=== PATIENT | female | born 1960 | race Caucasian/White ===

== ENCOUNTER 2019-07-18 07:52 | Observation (INO) | payer MEDICARE ==
--- NOTE | 2019-07-18 08:28 | RAD ---
Chest one view HISTORY: Altered mental status. COMPARISON: 01/15/2016. FINDINGS: Patient is rotated rightward. Right cardiac margin obscured by dense infiltrate within the medial segment right middle lobe. Pulmonary vasculature upper limits of normal. No evidence of pneumothorax. monitor and storage bin tender leads overlie the chest. IMPRESSION: Dense right middle lobe infiltrate. Consider pneumonia.
--- NOTE | 2019-07-18 08:50 | CT ---
CT head noncontrast HISTORY: Altered mental status. FINDINGS: There is no evidence of acute intracranial hemorrhage or infarct. Chronic ischemic small ve ssel disease within the periventricular white matter. There is no mass effect or shift of midline structures. Visualized paranasal sinuses remain well aerated. IMPRESSION: No acute intracranial abnormalities are demonstrated.
[2019-07-18 09:13] LABS: #Basophils 0.1 thou/uL (0.0-0.2); #Eosinphils 0.2 thou/uL (0.0-0.7); #Lymphocytes 2.1 thou/uL (1.20-3.40); #Monocytes 0.7 thou/uL (0.11-0.59); #Neutrophils 5.3 thou/uL (1.40-6.50); %Basophils 1.3 % (0.0-1.0); %Eosinophils 1.9 % (0.0-10.0); %Lymphocytes 24.9 % (21.0-51.0); %Monocytes 8.3 % (0.0-10.0); %Neutrophils 63.6 % (42.0-75.0); Hemoglobin 13.1 g/dL (12.0-16.0); Mean Corpuscular HGB CONC 33.8 g/dL (32.0-36.0); Mean Corpuscular Volume 94.8 fL (78.0-98.0); Mean Platelet Volume 6.3 fL (7.4-10.4); Platelet Count 340 thou/uL (130-400); RBC Distribution Width 11.4 % (11.5-14.5); White Blood Cell (WBC) Count 8.3 thou/uL (4.8-10.8)
[2019-07-18 09:27] LABS: ALT (SGPT) 17 U/L (8-55); AST (SGOT) 15 U/L (5-34); Acetaminophen Less than 6.0 mcg/mL (10.0-30.0); Albumin 3.8 g/dL (3.5-5.0); Alcohol Less than 10 mg/dL (Less than 10); Alkaline Phosphatase 102 U/L (40-110); Anion Gap 11 mmol/L (10-20); BUN (Urea Nitrogen) 13 mg/dL (9.8-20.1); Bilirubin, Total 0.2 mg/dL (0.2-1.2); CK (CPK) 47 U/L (29-168); Calc. Creatinine Clearance 0 mL/min (70-130); Calcium 9.1 mg/dL (7.8-10.44); Carbon Dioxide 27 mmol/L (22-29); Chloride 108 mmol/L (98-107); Estimated GFR-MDRD 78; Globulin 2.7 g/dL (2.4-3.5); Glucose 95 mg/dL (70-105); Lipase 36 U/L (8-78); Potassium 4.1 mmol/L (3.5-5.1); Protein, Total 6.5 g/dL (6.0-8.3); Salicylate Less than 8.0 mg/dL (15.0-30.0); Sodium 142 mmol/L (136-145)
[2019-07-18] MEDS ORDERED: Ondansetron ODT 4 MG TAB SL PRN (10:13)
[2019-07-18] MEDS ORDERED: Ondansetron PF 4 MG/2 ML Vial IVP PRN ×2 (10:13→16:05)
[2019-07-18] MEDS ORDERED: Aspirin 300 MG Suppository ONE (10:21)
[2019-07-18] MEDS ORDERED: hydrALAZINE 20 MG/ML VIAL SLOW IVP PRN (16:05)
[2019-07-18] MEDS ORDERED: Benzonatate 100 MG CAP PO PRN (16:05)
[2019-07-18] MEDS ORDERED: Diabetic Tussin 200 MG/10 ML UDCUP PO PRN (16:05)
[2019-07-18] MEDS ORDERED: Acetaminophen 500 MG TAB PO PRN (16:05)
[2019-07-18] MEDS ORDERED: Ondansetron ODT 4 MG TAB PO PRN (16:05)
--- NOTE | 2019-07-18 17:36 | HP ---
PRIMARY CARE PROVIDER: Dr. Palma Juarez. CHIEF COMPLAINT: Altered mental status. HISTORY OF PRESENT ILLNESS: This is a 59-year-old female, who presented initially to [facility] Emergency Department for evaluation of a left finger laceration. During the ER evaluation, the patient became somnolent and unresponsive. The patient was given Narcan per EMS report without improvement in mentation. The patient was apparently transported from her residence in [facility] to the [place] [facility], where evaluation including CT imaging of the brain showed no acute process. Urine drug screen was also performed showing cocaine and opiate metabolites. The patient was also noted on multiple psychotropic medications after review of her medication regimen. Chest imaging was also performed showing evidence of infiltrate of the right middle lobe and the patient received IV fluids in addition to Levaquin 750 mg IV push. The patient also received aspirin 324 mg. The history is obtained after review of electronic medical record as well as discussions with the emergency room attending as the patient is unable to provide a coherent history due to altered mental status. PAST MEDICAL HISTORY: 1. Polypharmacy. 2. Question of chronic pain syndrome. 3. Chronic obstructive pulmonary disease. 4. History of pneumonia. 5. Hyperlipidemia. 6. Cluster headaches. PAST SURGICAL HISTORY: 1. 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 2. Status post hysterectomy. 3. Status post colonoscopy. PAST PSYCHIATRIC HISTORY: 1. Bipolar disorder. 2. Schizophrenia. CURRENT MEDICATIONS: 1. Tylenol No. 4 300 mg/60 mg one tablet p.o. t.i.d. 2. Albuterol sulfate 0.083% nebulized q.4 to q.6 hours p.r.n. 3. Baclofen 20 mg one tablet p.o. b.i.d. 4. Wellbutrin XL 300 mg p.o. daily. 5. Keflex 500 mg p.o. b.i.d. 6. Klonopin 1 mg p.o. t.i.d. p.r.n. 7. Diclofenac 50 mg p.o. b.i.d. 8. Bentyl 10 mg p.o. t.i.d. p.r.n. 9. Estrace 1 mg p.o. daily. 10. Prozac 60 mg p.o. daily. 11. Haldol 5 mg p.o. b.i.d. 12. Keppra 500 mg p.o. b.i.d. 13. Pamelor 75 mg p.o. daily. 14. Omeprazole 20 mg p.o. daily. 15. Seroquel 200 mg half a tablet p.o. at bedtime. 16. Theophylline 450 mg p.o. daily. 17. Trazodone 100 mg p.o. at bedtime. ALLERGIES: NO KNOWN DRUG ALLERGIES. FAMILY HISTORY: Positive for hypertension. SOCIAL HISTORY: The patient resides in [place], [place]. Smokes up to one pack of cigarettes daily. No alcohol or illicit drug use reported initially at [facility] Emergency Room. REVIEW OF SYSTEMS: Unobtainable due to the patient's altered mental status. PHYSICAL EXAMINATION: VITAL SIGNS: On admission, blood pressure 116/96, pulse 58, respiratory rate 16, temperature 97.7 degrees Fahrenheit, and O2 saturation 98% on room air. GENERAL APPEARANCE: This is a 59-year-old female, lethargic, somnolent, minimally responsive to voice or tactile stimulation, in no acute distress. HEENT: Pupils are minimally reactive to light and accommodation. Extraocular muscles are intact. No scleral icterus. No conjunctival injection. Nares patent. OP is clear. Oral mucosa dry. NECK: Supple. No cervical adenopathy. No thyromegaly. No carotid bruits. No JVD appreciated. Cervical spine with full active and passive range of motion. No meningeal signs noted. CHEST: Diminished breath sounds bilaterally in the bases with occasional rhonchi. CARDIOVASCULAR: S1 and S2 without noted murmur, rub, or gallop. ABDOMEN: Rounded, soft, nontender, and nondistended. Bowel sounds are positive in all 4 quadrants. There is no hepatosplenomegaly. No abdominal bruits. No rebound or guarding appreciated. EXTREMITIES: Warm and dry with fair turgor. No clubbing, cyanosis, or asymmetric edema appreciated. Pulses palpable distally at the dorsalis pedis, posterior tibial, and popliteal arteries bilaterally. Capillary refill less than 2 seconds. NEUROLOGIC: Somnolent and lethargic, minimally responsive to tactile and verbal stimuli. Does not follow commands. PERTINENT LABORATORY AND X-RAY FINDINGS: Basic metabolic profile within normal limits. Lactic acid level 1.5. LFTs within normal limits. BNP 10.2. Troponin-I negative x1. TSH 1.87. CBC showed a white blood cell count 8.3, hemoglobin 13, hematocrit 39, platelet count 340 with 64% neutrophils. Urine drug screen positive for cocaine and opiate metabolites. Urinalysis negative. Portable chest x-ray dated 07/18/2019, showed right middle lobe infiltrate. CT of the brain without contrast dated 07/18/2019, showed no acute intracranial process. EKG dated 07/18/2019, by my interpretation shows sinus mechanism with heart rates in the 50s. Normal R-wave progression noted in the precordial leads. Normal axis. T-wave inversion noted in leads V2 and V3. ASSESSMENT AND PLAN: 1. Acute toxic metabolic encephalopathy, suspect multifactorial including polypharmacy with multiple psychotropic medications including illicit substances with cocaine. Continue general supportive management. Intravenous normal saline 100 mL/h. Avoid sedation and psychotropic medications. Consult [employer] Services when clinically stabilized. 2. Right middle lobe bacterial pneumonia, suspected given initial chest imaging results. Continue Levaquin 750 mg IV daily. Blood cultures x2 pending. Oxygen p.r.n. to maintain O2 saturations greater than or equal to 90%. 3. Bipolar disorder/schizophrenia. We will confirm home medication regimen. It appears the patient with extensive polypharmacy likely contributing at presentation. 4. Tobacco abuse. Smoking cessation resources prior to discharge. 5. Prophylaxis. SCDs while in bed. Pepcid 20 mg IV q.12 hours. [employer] consult when medically stable. 6. Code status: Full. Surrogate medical decision maker is the patient's sister, Carine Guillermo. Job ID: [id number]
[2019-07-18] MEDS: Sodium Chloride 0.9% 1,000 ML IV SCH (18:27)
[2019-07-18] MEDS: Famotidine/PF 20 mg/2ml Vial SLOW IVP SCH (23:09)
[2019-07-19] MEDS ORDERED: Acetaminophen 650 MG Suppository PR PRN (00:04)
[2019-07-19] MEDS: Sodium Chloride 0.9% 1,000 ML IV SCH (02:05)
[2019-07-19 05:36] LABS: Band 4 % (5-11); Eosinophils 3 % (0-10); Hemoglobin 12.2 g/dL (12.0-16.0); Lymphocytes 24 % (21-51); MDiff Complete? YES; Mean Corpuscular HGB CONC 32.1 g/dL (32.0-36.0); Mean Corpuscular Volume 96.3 fL (78.0-98.0); Mean Platelet Volume 6.4 fL (7.4-10.4); Monocytes 7 % (0-10); Neutrophil 62 % (42-75); Platelet Count 307 thou/uL (130-400); RBC Distribution Width 11.5 % (11.5-14.5); Red Blood Cell (RBC) Count 3.94 mill/uL (4.20-5.40); White Blood Cell (WBC) Count 7.8 thou/uL (4.8-10.8)
[2019-07-19 05:41] LABS: ALT (SGPT) 14 U/L (8-55); AST (SGOT) 14 U/L (5-34); Albumin 3.4 g/dL (3.5-5.0); Alkaline Phosphatase 88 U/L (40-110); Anion Gap 12 mmol/L (10-20); BUN (Urea Nitrogen) 17 mg/dL (9.8-20.1); Bilirubin, Total 0.4 mg/dL (0.2-1.2); Calc. Creatinine Clearance 93 mL/min (70-130); Calcium 8.3 mg/dL (7.8-10.44); Carbon Dioxide 21 mmol/L (22-29); Chloride 112 mmol/L (98-107); Estimated GFR-MDRD 76; Globulin 2.4 g/dL (2.4-3.5); Glucose 88 mg/dL (70-105); Potassium 3.8 mmol/L (3.5-5.1); Protein, Total 5.8 g/dL (6.0-8.3); Sodium 141 mmol/L (136-145)
[2019-07-19] MEDS: Famotidine/PF 20 mg/2ml Vial SLOW IVP SCH ×2 (09:18→21:30)
[2019-07-19] MEDS ORDERED: PROVENTIL INHALER 6.7 G (200 INHALATIONS) INH PRN (15:54)
--- NOTE | 2019-07-19 15:54 | PDOC.HOSPP ---
- Subjective Encounter Date: 07/19/19 Encounter Time: 15:50 Subjective: f/u for AMS and polypharmacy with cocaine. More alert and interactive. [facility] consulted given multiple psychotropic medications in addition to cocaine. - Objective Vital Signs & Weight: Vital Signs (12 hours) Temp Pulse Resp BP BP Pulse Ox 07/19/19 11:58 98.4 F 62 18 172/99 H 98 07/19/19 11:15 172/99 H 07/19/19 08:08 96 07/19/19 08:00 98.7 F 64 16 140/89 96 07/19/19 04:00 98.0 F 59 L 16 147/97 H 94 L Weight Weight 167 lb 14.4 oz I&O: 07/18/19 07/19/19 07/20/19 06:59 06:59 06:59 Intake Total 100 240 Output Total 800 Balance -700 240 Result Diagrams: 07/19/19 05:11 07/19/19 05:11 Additional Labs: Microbiology 07/19/19 04:38 Nasal swab Influenza Types A,B Direct EIA - Final 07/18/19 09:51 Venous blood - Right Hand Blood Culture - Preliminary Specimen has been received and culture in progress. No Growth to date. 07/18/19 09:51 Venous blood - Left Arm Blood Culture - Preliminary Specimen has been received and culture in progress. No Growth to date. Laboratory Tests 07/18/19 07/18/19 08:56 08:56 Ammonia 26 TSH 3rd Generation 1.8686 Radiology Reviewed by me: Yes (CT brain - negative) EKG Reviewed by me: Yes (Tele - SR) Hospitalist ROS - Medication Medications: Active Medications Generic Name Dose Route Start Last Admin Trade Name Freq PRN Reason Stop Dose Admin Acetaminophen 650 mg 07/19/19 00:04 07/19/19 01:57 Tylenol W[place] 650 mg Q4H PRN Administration Headache/Fever or Pain Famotidine 20 mg 07/18/19 21:00 07/19/19 09:18 Pepcid SLOW IVP 20 mg Q12HR KEIKO Administration Levofloxacin 750 mg/ Device 150 mls @ 100 mls/hr 07/19/19 09:00 07/19/19 09: 18 IVPB 150 mls 0900 KEIKO Administration Sodium Chloride 1,000 mls @ 100 mls/hr 07/18/19 16:05 07/19/19 02:05 Normal Saline 0.9% IV Not Given .Q10H KEIKO - Exam General Appearance: awake alert Eye: PERRL, anicteric sclera ENT: normocephalic atraumatic, no oropharyngeal lesions Neck: supple, symmetric, no JVD, no thyromegaly Heart: RRR, no murmur, no gallops, no rubs, normal peripheral pulses Respiratory - other findings: few scattered rhochi and coarse sounds Gastrointestinal: soft, non-tender, non-distended, normal bowel sounds Extremities: no cyanosis, no clubbing, no edema Skin: normal turgor, no lesions Neurological: cranial nerve grossly intact, no new deficit Musculoskeletal: normal tone, generalized weakness Psychiatric: A&O x 3, flat affect Hosp A/P (1) Toxic metabolic encephalopathy Code(s): G92 - TOXIC ENCEPHALOPATHY Status: Acute Plan: Secondary to polypharmacy, drug holiday, [facility] consult for dispo planning (2) Bacterial pneumonia Code(s): J15.9 - UNSPECIFIED BACTERIAL PNEUMONIA Status: Acute Plan: Suspected, continue Levaquin 750mg IV daily, pulmonary supportive mgmt (3) Bipolar disorder Code(s): F31.9 - BIPOLAR DISORDER, UNSPECIFIED Status: Chronic Plan: [facility] consult pending (4) Schizophrenia Code(s): F20.9 - SCHIZOPHRENIA, UNSPECIFIED Status: Chronic Plan: See above (5) Tobacco abuse Code(s): Z72.0 - TOBACCO USE Status: Chronic - Plan continue antibiotics, pediatric social worker, respiratory therapy, out of bed/ambulate , DVT proph w/SCDs Stable currently Resume home meds selectively [facility] consult for dispo options OOB/chair Continue IVF's another 24h
[2019-07-19] MEDS ORDERED: Ketorolac Tromethamine 30 MG/ML VIAL IVP PRN (16:11)
--- NOTE | 2019-07-19 19:53 | DIS ---
DATE OF ADMISSION: 07/18/2019 DATE OF DISCHARGE: 07/19/2019 DISCHARGE DIAGNOSES: 1. Acute toxic metabolic encephalopathy secondary to #2. 2. Polypharmacy. 3. Cocaine abuse. 4. Bacterial pneumonia suspected right middle lobe. 5. Bipolar disorder. 6. Schizophrenia. 7. Tobacco abuse. CONSULTATIONS: [facility] Service. PERTINENT LABORATORY AND X-RAY FINDINGS: Complete metabolic profile within normal limits. BNP 10.2. Troponin negative x1. Serum ammonia level 26. TSH is 1.87. CBC within normal limits. Urine drug screen positive for cocaine metabolites. Plasma alcohol level less than 10. Portable chest x-ray dated 07/18/2019, showed right middle lobe infiltrate. CT of the brain without contrast dated 07/18/2019, showed no acute intracranial process. HOSPITAL COURSE: The patient was admitted to the Stroke Unit after initially presenting with altered mental status. The patient initially managed with Narcan without success, undergoing CT imaging of the brain showing no acute process. Urine drug screen was performed showing cocaine and opiate metabolites. The patient was also noted on multiple psychotropic medications due to history of schizophrenia and bipolar disorder. The patient was also noted with a right middle lobe infiltrate concerning for early pneumonia and treated with IV Levaquin. The patient was given a drug holiday and monitored for clinical response. The patient's mentation did improve with discontinuation of multiple psychotropic medications. However, the patient's orientation and grasp of reality were questionable prompting [facility] evaluation. Due to the patient's lack of insight and discordance with reality in conjunction with known bipolar disorder and schizophrenia, the patient was deemed an appropriate candidate for ongoing inpatient psychiatric care with adjustment to her chronic medication regimen due to severe sedation and questionable appropriateness of current regimen. The patient has been approved to transfer to [facility] and likely will transfer on 07/19/2019. I have examined the patient at the time of discharge and discussed followup instructions with the patient as well as the patient's sister. DISCHARGE MEDICATIONS: 1. Tylenol No. 4, 300 mg/60 mg 1 tablet p.o. t.i.d. p.r.n. 2. Wellbutrin XL 300 mg p.o. q.a.m. 3. Clonazepam 1 mg p.o. t.i.d. 4. Dicyclomine 10 mg p.o. t.i.d. p.r.n. 5. Benadryl 25 mg p.o. q.6 hours p.r.n. 6. Estrace 1 mg p.o. daily. 7. Prozac 60 mg p.o. daily. 8. Haldol 5 mg p.o. b.i.d. 9. Keppra 500 mg p.o. b.i.d. 10. Nortriptyline 75 mg p.o. at bedtime. 11. Omeprazole 20 mg p.o. daily. 12. Seroquel 150 mg p.o. at bedtime. 13. Theophylline extended release 450 mg p.o. daily. 14. Trazodone 100 mg p.o. at bedtime. 15. Ventolin HFA one puff inhaled q.4 hours p.r.n. 16. Levaquin 500 mg p.o. daily x7 days. FOLLOWUP: The patient may follow up with her primary care provider after discharge from [facility]. CONDITION ON DISCHARGE: Guarded. ACTIVITY: Ad-ashtyn. DIET: Regular. CODE STATUS: Full. DISPOSITION: Transfer to [facility] on 07/19/2019. TIME SPENT: Total time preparing and coordinating discharge, 32 minutes. Job ID: [id number]
[2019-07-19] MEDS: Haloperidol 5 MG TAB PO SCH (21:30)
[2019-07-19] MEDS: levETIRAcetam 500 MG TAB PO SCH (21:30)
[2019-07-20] MEDS: Sodium Chloride 0.9% 1,000 ML IV SCH (00:05)
[2019-07-20] MEDS ORDERED: Estradiol 1 MG TAB PO SCH (09:00)
[2019-07-20] MEDS ORDERED: FLUoxetine HCl 20 MG CAP PO SCH (09:00)
[2019-07-20] MEDS ORDERED: Bupropion 150 MG XL TAB PO SCH (09:00)
[2019-07-20] MEDS ORDERED: Theophylline ER 450 MG TAB PO SCH (09:00)
[2019-07-20] MEDS: levETIRAcetam 500 MG TAB PO SCH (09:43)
[2019-07-20] MEDS: Haloperidol 5 MG TAB PO SCH (09:43)
[2019-07-20] MEDS: Famotidine/PF 20 mg/2ml Vial SLOW IVP SCH (09:44)
[2019-07-20 11:12] VITALS: BP 111/75; TEMP 97.5
--- NOTE | 2019-07-22 11:05 | DIS ---
DATE OF ADMISSION: 07/18/2019 DATE OF DISCHARGE: 07/20/2019 Discharge summary was dictated yesterday by Dr. Nickerson. Please refer to that discharge summary. PHYSICAL EXAMINATION: GENERAL: Today, the patient is alert, responsive, cooperative, in no distress. VITAL SIGNS: Her latest vital signs show temperature of 98, pulse rate 57, respiratory rate 14, blood pressure 147/95. HEENT: Her head and neck examination is normal. HEART: She has regular S1 and S2. LUNGS: Clear. ABDOMEN: Soft. EXTREMITIES: Limbs show no edema. NEUROLOGIC: She moves all extremities. ASSESSMENT: The patient is clinically stable at this time, being transferred to [facility]. Job ID: [id number]
== END 2019-07-20 12:40 ==
LOC: ERS 07:52 → 2SE 14:28
PROVIDERS: ADMIT Family Medicine; ATTEND Family Medicine
DX: G92 Toxic encephalopathy (principal); T50.915A Adverse effect of multiple unspecified drugs, medicaments and biological substances, initial encounter; F14.10 Cocaine abuse, uncomplicated; J15.9 Unspecified bacterial pneumonia; F31.9 Bipolar disorder, unspecified; F20.9 Schizophrenia, unspecified; F17.210 Nicotine dependence, cigarettes, uncomplicated; J44.9 Chronic obstructive pulmonary disease, unspecified; E78.5 Hyperlipidemia, unspecified; M19.90 Unspecified osteoarthritis, unspecified site; I50.9 Heart failure, unspecified; Z86.73 Personal history of transient ischemic attack (TIA), and cerebral infarction without residual deficits; Z79.899 Other long term (current) drug therapy
CPT/HCPCS: 36415; 70450; 71045; 80053; 80307; 82140; 82550; 83605; 83690; 83880; 84443; 84484; 85007; 85025; 85027; 87040; 87804; 93005; 96365; 96375; 96376; G0378; J1956; S0028